=== PATIENT | female | born 1985 | race Caucasian/White ===

== ENCOUNTER 2016-12-22 11:18 | Outpatient (CLI) | payer OTHER | END 2016-12-22 13:18 | disposition home or self-care (01) | LOC: ECT 11:18 | DX: F31.4 Bipolar disorder, current episode depressed, severe, without psychotic features (principal); K21.9 Gastro-esophageal reflux disease without esophagitis ==

== ENCOUNTER 2017-01-06 04:41 | Outpatient (RCR) | payer OTHER ==
[~2017-01-06] VITALS: Ht 162.6 cm; Wt 111.5 kg
[2017-01-06] MEDS ORDERED: Ketorolac 60mg Inj ONE (04:42)
[2017-01-06] MEDS ORDERED: Ketamine 500mg Inj ONE (04:42)
[2017-01-06] MEDS ORDERED: NS 500ML IV ONE ×2 (04:42)
[2017-01-06] MEDS ORDERED: Glycopyrrolate 0.2mg/ml 1ml Vial ONE (04:42)
[2017-01-06] MEDS ORDERED: Excedrin Migraine tab ONE ×2 (04:42)
[2017-01-06] MEDS ORDERED: Succinylcholine 20mg/ml 10ml vial ONE ×2 (04:42)
[2017-01-06] MEDS ORDERED: Excedrin Migraine tab ORAL PRN (08:26)
[2017-01-06] MEDS ORDERED: Sodium Chloride 500ML 500 ML IV ONE (08:26)
[2017-01-09] MEDS ORDERED: Sodium Chloride 500ML 500 ML IV ONE (08:54)
[2017-01-09] MEDS ORDERED: Excedrin Migraine tab ORAL PRN (08:54)
[2017-01-11] MEDS ORDERED: Sodium Chloride 500ML 500 ML IV ONE (08:38)
[2017-01-11] MEDS ORDERED: Excedrin Migraine tab ORAL PRN (08:38)
[2017-01-12] MEDS ORDERED: Glycopyrrolate 0.2mg/ml 1ml Vial ONE (07:00)
[2017-01-12] MEDS ORDERED: Excedrin Migraine tab ONE (07:00)
[2017-01-12] MEDS ORDERED: Ketorolac 60mg Inj ONE (07:00)
[2017-01-12] MEDS ORDERED: NS 500ML IV ONE (07:00)
[2017-01-12] MEDS ORDERED: Ketamine 500mg Inj ONE (07:00)
[2017-01-12] MEDS ORDERED: Succinylcholine 20mg/ml 10ml vial ONE (07:00)
[2017-01-13] MEDS ORDERED: Excedrin Migraine tab ONE (06:00)
[2017-01-13] MEDS ORDERED: Succinylcholine 20mg/ml 10ml vial ONE (06:00)
[2017-01-13] MEDS ORDERED: Ketorolac 60mg Inj ONE (06:00)
[2017-01-13] MEDS ORDERED: Glycopyrrolate 0.2mg/ml 1ml Vial ONE (06:00)
[2017-01-13] MEDS ORDERED: Ketamine 500mg Inj ONE (06:00)
[2017-01-13] MEDS ORDERED: NS 500ML IV ONE (06:00)
[2017-01-13] MEDS ORDERED: Sodium Chloride 500ML 500 ML IV ONE (08:42)
[2017-01-16] MEDS ORDERED: Ketamine 500mg Inj ONE (05:00)
[2017-01-16] MEDS ORDERED: Excedrin Migraine tab ONE (05:00)
[2017-01-16] MEDS ORDERED: Succinylcholine 20mg/ml 10ml vial ONE (05:00)
[2017-01-16] MEDS ORDERED: NS 500ML IV ONE (05:00)
[2017-01-16] MEDS ORDERED: Glycopyrrolate 0.2mg/ml 1ml Vial ONE (05:00)
[2017-01-16] MEDS ORDERED: Sodium Chloride 500ML 500 ML IV ONE (08:42)
[2017-01-16] MEDS ORDERED: Excedrin Migraine tab ORAL PRN (08:42)
[2017-01-18] MEDS ORDERED: NS 500ML IV ONE (07:00)
[2017-01-18] MEDS ORDERED: Succinylcholine 20mg/ml 10ml vial ONE (07:00)
[2017-01-18] MEDS ORDERED: Ketorolac 60mg Inj ONE (07:00)
[2017-01-18] MEDS ORDERED: Excedrin Migraine tab ONE (07:00)
[2017-01-18] MEDS ORDERED: Ketamine 500mg Inj ONE (07:00)
[2017-01-18] MEDS ORDERED: Sodium Chloride 500ML 500 ML IV ONE (09:14)
[2017-01-18] MEDS ORDERED: Excedrin Migraine tab ORAL PRN (09:14)
[2017-01-23] MEDS ORDERED: Ketamine 500mg Inj ONE (06:00)
[2017-01-23] MEDS ORDERED: Glycopyrrolate 0.2mg/ml 1ml Vial ONE (06:00)
[2017-01-23] MEDS ORDERED: Succinylcholine 20mg/ml 10ml vial ONE (06:00)
[2017-01-23] MEDS ORDERED: Excedrin Migraine tab ONE (06:00)
[2017-01-23] MEDS ORDERED: NS 500ML IV ONE (06:00)
[2017-01-23] MEDS ORDERED: Excedrin Migraine tab ORAL PRN (09:58)
[2017-01-23] MEDS ORDERED: Sodium Chloride 500ML 500 ML IV ONE (09:58)
[2017-01-25] MEDS ORDERED: Ketamine 500mg Inj ONE (07:00)
[2017-01-25] MEDS ORDERED: Succinylcholine 20mg/ml 10ml vial ONE (07:00)
[2017-01-25] MEDS ORDERED: Excedrin Migraine tab ONE (07:00)
[2017-01-25] MEDS ORDERED: Glycopyrrolate 0.2mg/ml 1ml Vial ONE (07:00)
[2017-01-25] MEDS ORDERED: NS 500ML IV ONE (07:00)
[2017-01-25] MEDS ORDERED: Sodium Chloride 500ML 500 ML IV ONE (08:27)
[2017-01-25] MEDS ORDERED: Excedrin Migraine tab ORAL PRN (08:27)
[2017-01-27] MEDS ORDERED: Glycopyrrolate 0.2mg/ml 1ml Vial ONE (06:00)
[2017-01-27] MEDS ORDERED: Ketorolac 60mg Inj ONE (06:00)
[2017-01-27] MEDS ORDERED: NS 500ML IV ONE (06:00)
[2017-01-27] MEDS ORDERED: Ketamine HCl 100mg syr ONE (06:00)
[2017-01-27] MEDS ORDERED: Succinylcholine 20mg/ml 10ml vial ONE (06:00)
[2017-01-27] MEDS ORDERED: Excedrin Migraine tab ONE (06:00)
[2017-01-27] MEDS ORDERED: Sodium Chloride 500ML 500 ML IV ONE (09:12)
[2017-01-27] MEDS ORDERED: Excedrin Migraine tab ORAL PRN (09:12)
== END 2017-01-28 | disposition home or self-care (01) ==
LOC: ECT 04:41
DX: F31.4 Bipolar disorder, current episode depressed, severe, without psychotic features (principal)
CPT/HCPCS: 90870; J0330; J2405; J3490; J7040

== ENCOUNTER 2017-02-15 07:02 | Outpatient (RCR) | payer OTHER ==
[~2017-02-15] VITALS: Ht 162.6 cm; Wt 111.1 kg
[2017-02-15] MEDS ORDERED: Ketorolac 60mg Inj ONE (07:03)
[2017-02-15] MEDS ORDERED: Succinylcholine 20mg/ml 10ml vial ONE (07:03)
[2017-02-15] MEDS ORDERED: Ketamine 500mg Inj ONE (07:03)
[2017-02-15] MEDS ORDERED: Excedrin Migraine tab ONE (07:03)
[2017-02-15] MEDS ORDERED: NS 500ML IV ONE (07:03)
[2017-02-15] MEDS ORDERED: Glycopyrrolate 0.2mg/ml 1ml Vial ONE (07:03)
[2017-02-15 08:06] VITALS: BP 148/84
[2017-02-15] MEDS ORDERED: Sodium Chloride 500ML 500 ML IV ONE (08:24)
[2017-02-15] MEDS ORDERED: Excedrin Migraine tab ORAL PRN (08:24)
[2017-02-15 08:25] VITALS: BP 157/79
[2017-02-15 08:30] VITALS: BP 148/68
[2017-02-15 08:35] VITALS: BP 150/66
[2017-02-15 08:40] VITALS: BP 145/68
== END 2017-02-28 | disposition home or self-care (01) ==
LOC: ECT 07:02
DX: F31.4 Bipolar disorder, current episode depressed, severe, without psychotic features (principal)
CPT/HCPCS: 90870; J0330; J2405; J3490; J7040

== ENCOUNTER 2017-03-01 05:03 | Outpatient (RCR) | payer OTHER ==
[~2017-03-01] VITALS: Ht 162.6 cm; Wt 111.1 kg
[2017-03-01] MEDS ORDERED: Succinylcholine 20mg/ml 10ml vial ONE (05:04)
[2017-03-01] MEDS ORDERED: Glycopyrrolate 0.2mg/ml 1ml Vial ONE (05:04)
[2017-03-01] MEDS ORDERED: Excedrin Migraine tab ONE (05:04)
[2017-03-01] MEDS ORDERED: NS 500ML IV ONE (05:04)
[2017-03-01] MEDS ORDERED: Ketamine 500mg Inj ONE (05:04)
[2017-03-01] MEDS ORDERED: Ketorolac 60mg Inj ONE (05:04)
[2017-03-01 08:57] VITALS: BP 153/90
[2017-03-01] MEDS ORDERED: Sodium Chloride 500ML 500 ML IV ONE (09:14)
[2017-03-01] MEDS ORDERED: Excedrin Migraine tab ORAL PRN (09:14)
[2017-03-01 09:15] VITALS: BP 150/78
[2017-03-01 09:20] VITALS: BP 148/73
[2017-03-01 09:25] VITALS: BP 148/60
[2017-03-01 09:30] VITALS: BP 144/76
[2017-03-22] MEDS ORDERED: Ketamine HCl 100mg syr ONE (08:00)
[2017-03-22] MEDS ORDERED: NS 500ML ONE (08:00)
[2017-03-22] MEDS ORDERED: Ketorolac 60mg Inj ONE (08:00)
[2017-03-22] MEDS ORDERED: Excedrin Migraine tab ONE (08:00)
[2017-03-22] MEDS ORDERED: Glycopyrrolate 0.2mg/ml 1ml Vial ONE (08:00)
[2017-03-22] MEDS ORDERED: Succinylcholine 20mg/ml 10ml vial ONE (08:00)
[2017-03-22 08:14] VITALS: BP 131/86
[2017-03-22] MEDS ORDERED: Sodium Chloride 500ML 500 ML IV ONE (08:30)
[2017-03-22] MEDS ORDERED: Excedrin Migraine tab ORAL PRN (08:30)
[2017-03-22 08:35] VITALS: BP 153/80
[2017-03-22 08:40] VITALS: BP 139/89
[2017-03-22 08:45] VITALS: BP 139/89
[2017-03-22 08:50] VITALS: BP 148/74
== END 2017-03-30 | disposition home or self-care (01) ==
LOC: ECT 05:03
DX: F31.4 Bipolar disorder, current episode depressed, severe, without psychotic features (principal)
CPT/HCPCS: 90870; J0330; J2405; J3490; J7040

== ENCOUNTER 2017-04-10 08:39 | Outpatient (RCR) | payer OTHER ==
[~2017-04-10] VITALS: Ht 162.6 cm; Wt 111.1 kg
[2017-04-10 08:17] VITALS: BP 141/73
[2017-04-10 08:35] VITALS: BP 145/74
[~2017-04-10 08:39] MED LIST: Excedrin Migraine tab ORAL PRN; Sodium Chloride 500ML 500 ML IV ONE
[2017-04-10 08:40] VITALS: BP 141/65
[2017-04-10] MEDS ORDERED: Glycopyrrolate 0.2mg/ml 1ml Vial ONE (08:40)
[2017-04-10] MEDS ORDERED: NS 500ML ONE (08:40)
[2017-04-10] MEDS ORDERED: Succinylcholine 20mg/ml 10ml vial ONE (08:40)
[2017-04-10] MEDS ORDERED: Ketorolac 60mg Inj ONE (08:40)
[2017-04-10] MEDS ORDERED: Ketamine 500mg Inj ONE (08:40)
[2017-04-10] MEDS ORDERED: Excedrin Migraine tab ONE (08:40)
[2017-04-10 08:45] VITALS: BP 129/78
[2017-04-10 08:50] VITALS: BP 132/66
[2017-04-10 08:55] VITALS: BP 136/69
== END 2017-04-30 | disposition home or self-care (01) ==
LOC: ECT 08:39
DX: F31.4 Bipolar disorder, current episode depressed, severe, without psychotic features (principal)
CPT/HCPCS: 90870; J0330; J2405; J3490; J7040

== ENCOUNTER 2017-05-05 05:04 | Outpatient (RCR) | payer OTHER ==
[~2017-05-05] VITALS: Ht 162.6 cm; Wt 111.1 kg
[2017-05-05] MEDS ORDERED: Ketamine 500mg Inj ONE (05:05)
[2017-05-05] MEDS ORDERED: NS 500ML ONE (05:05)
[2017-05-05] MEDS ORDERED: Succinylcholine 20mg/ml 10ml vial ONE (05:05)
[2017-05-05] MEDS ORDERED: Ketorolac 60mg Inj ONE (05:05)
[2017-05-05] MEDS ORDERED: Glycopyrrolate 0.2mg/ml 1ml Vial ONE (05:05)
[2017-05-05] MEDS ORDERED: Excedrin Migraine tab ONE (05:05)
[2017-05-05 08:43] VITALS: BP 130/77
[2017-05-05] MEDS ORDERED: Sodium Chloride 500ML 500 ML IV ONE (08:58)
[2017-05-05 09:00] VITALS: BP 151/96
[2017-05-05 09:05] VITALS: BP 149/76
[2017-05-05 09:10] VITALS: BP 129/65
[2017-05-05 09:15] VITALS: BP 131/55
== END 2017-05-31 | disposition home or self-care (01) ==
LOC: ECT 05:04
DX: F31.4 Bipolar disorder, current episode depressed, severe, without psychotic features (principal); K21.9 Gastro-esophageal reflux disease without esophagitis; J45.909 Unspecified asthma, uncomplicated
CPT/HCPCS: 90870; J0330; J2405; J3490; J7040

== ENCOUNTER 2017-06-05 06:42 | Outpatient (RCR) | payer OTHER ==
[~2017-06-05] VITALS: Ht 162.6 cm; Wt 111.1 kg
[2017-06-05] MEDS ORDERED: Excedrin Migraine tab ONE (06:43)
[2017-06-05] MEDS ORDERED: NS 500ML ONE (06:43)
[2017-06-05] MEDS ORDERED: Ketorolac 60mg Inj ONE (06:43)
[2017-06-05] MEDS ORDERED: Glycopyrrolate 0.2mg/ml 1ml Vial ONE (06:43)
[2017-06-05] MEDS ORDERED: Succinylcholine 20mg/ml 10ml vial ONE (06:43)
[2017-06-05] MEDS ORDERED: Ketamine 500mg Inj ONE (06:43)
[2017-06-05 08:31] VITALS: BP 141/80
[2017-06-05] MEDS ORDERED: Sodium Chloride 500ML 500 ML IV ONE (08:51)
[2017-06-05 08:55] VITALS: BP 141/68
[2017-06-05 09:00] VITALS: BP 142/64
[2017-06-05 09:05] VITALS: BP 135/69
[2017-06-05 09:10] VITALS: BP 137/65
[2017-06-05 09:15] VITALS: BP 128/67
== END 2017-06-28 | disposition home or self-care (01) ==
LOC: ECT 06:42
DX: F31.4 Bipolar disorder, current episode depressed, severe, without psychotic features (principal)
CPT/HCPCS: 90870; J0330; J2405; J3490; J7040

== ENCOUNTER 2017-07-03 07:41 | Outpatient (RCR) | payer OTHER ==
[~2017-07-03] VITALS: Ht 162.6 cm; Wt 111.1 kg
[2017-07-03] MEDS ORDERED: Ketorolac 60mg Inj ONE (07:42)
[2017-07-03] MEDS ORDERED: NS 500ML ONE (07:42)
[2017-07-03] MEDS ORDERED: Excedrin Migraine tab ONE (07:42)
[2017-07-03] MEDS ORDERED: Ketamine 500mg Inj ONE (07:42)
[2017-07-03] MEDS ORDERED: Succinylcholine 20mg/ml 10ml vial ONE (07:42)
[2017-07-03] MEDS ORDERED: Glycopyrrolate 0.2mg/ml 1ml Vial ONE (07:42)
[2017-07-03 08:10] VITALS: BP 160/60
[2017-07-03 08:24] VITALS: BP 179/109
[2017-07-03] MEDS ORDERED: Sodium Chloride 500ML 500 ML IV ONE (08:24)
[2017-07-03] MEDS ORDERED: Excedrin Migraine tab ORAL PRN (08:24)
[2017-07-03 08:29] VITALS: BP 182/86
[2017-07-03 08:34] VITALS: BP 160/83
[2017-07-03 08:39] VITALS: BP 160/98
== END 2017-07-29 | disposition home or self-care (01) ==
LOC: ECT 07:41
DX: F31.4 Bipolar disorder, current episode depressed, severe, without psychotic features (principal)
CPT/HCPCS: 90870; J0330; J2405; J3490; J7040

== ENCOUNTER 2017-09-22 07:17 | Outpatient (RCR) | payer OTHER ==
[~2017-09-22] VITALS: Ht 162.6 cm; Wt 111.1 kg
[2017-09-22] MEDS ORDERED: Ketamine HCl 100mg syr ONE (07:18)
[2017-09-22] MEDS ORDERED: Excedrin Migraine tab ONE (07:18)
[2017-09-22] MEDS ORDERED: Succinylcholine 20mg/ml 10ml vial ONE (07:18)
[2017-09-22] MEDS ORDERED: NS 500ML ONE (07:18)
[2017-09-22] MEDS ORDERED: Ketorolac 60mg Inj ONE (07:18)
[2017-09-22] MEDS ORDERED: Glycopyrrolate 0.2mg/ml 1ml Vial ONE (07:18)
[2017-09-22 09:27] VITALS: BP 134/91
[2017-09-22] MEDS ORDERED: Excedrin Migraine tab ORAL PRN (09:42)
[2017-09-22] MEDS ORDERED: Sodium Chloride 500ML 500 ML IV ONE (09:42)
[2017-09-22 09:45] VITALS: BP 146/86
[2017-09-22 09:50] VITALS: BP 140/57
[2017-09-22 09:55] VITALS: BP 144/72
[2017-09-22 10:00] VITALS: BP 141/65
[2017-09-22 10:05] VITALS: BP 139/72
== END 2017-09-28 | disposition home or self-care (01) ==
LOC: ECT 07:17
DX: F31.4 Bipolar disorder, current episode depressed, severe, without psychotic features (principal)
CPT/HCPCS: 90870; J0330; J2405; J7040

== ENCOUNTER 2017-10-18 06:27 | Outpatient (RCR) | payer OTHER ==
[~2017-10-18] VITALS: Ht 162.6 cm; Wt 111.1 kg
[2017-10-18] MEDS ORDERED: Excedrin Migraine tab ONE (06:28)
[2017-10-18] MEDS ORDERED: Succinylcholine 20mg/ml 10ml vial ONE (06:28)
[2017-10-18] MEDS ORDERED: Ketorolac 60mg Inj ONE (06:28)
[2017-10-18] MEDS ORDERED: NS 500ML ONE (06:28)
[2017-10-18] MEDS ORDERED: Glycopyrrolate 0.2mg/ml 1ml Vial ONE (06:28)
[2017-10-18] MEDS ORDERED: Ketamine 500mg Inj ONE (06:28)
[2017-10-18 09:21] VITALS: BP 135/77
[2017-10-18] MEDS ORDERED: Excedrin Migraine tab ORAL PRN (09:36)
[2017-10-18] MEDS ORDERED: Sodium Chloride 500ML 500 ML IV ONE (09:36)
[2017-10-18 09:40] VITALS: BP 146/69
[2017-10-18 09:45] VITALS: BP 129/77
[2017-10-18 09:50] VITALS: BP 131/77
[2017-10-18 09:55] VITALS: BP 136/68
== END 2017-10-28 | disposition home or self-care (01) ==
LOC: ECT 06:27
DX: F31.4 Bipolar disorder, current episode depressed, severe, without psychotic features (principal)
CPT/HCPCS: 90870; J0330; J2405; J3490; J7040